=== PATIENT | male | born 1975 | race Caucasian/White ===

== ENCOUNTER → 2017-02-10 | Outpatient (REF) ==
--- NOTE | 2017-02-10 15:42 | REP ---
Cervical spine series: Limited study three views. History: Degenerative disc disease. No comparison views. Findings: Lateral view shows degenerative disc spurring and slight narrowing at the C4-5, C5-6 and C6-7. Alignment is normal. Vertebral body heights are preserved. Open-mouth odontoid view is unremarkable. AP radiograph shows minimal facet hypertrophy in the mid cervical spine bilaterally. Impression: Mild degenerative spondylosis changes. Signed by Darius Lizarraga MD 02/10/2017 05:01 P
--- NOTE | 2017-02-11 08:39 | REP ---
Lumbar spine series: Three views. History: Degenerative disc disease. Findings: Lumbar vertebral body heights are preserved. There is degenerative disc narrowing at L4-5, L5-S1, and to a lesser extent L3-4. Discogenic spurring is seen at these levels as well as at L1-2 and L2-3. Pedicles and posterior elements are intact. There is no evidence of spondylolysis or spondylolisthesis. Sacrum and SI joints are unremarkable. Psoas margins are intact. Visualized bowel gas pattern is normal. Impression: Degenerative disc disease mild and diffuse. This is most pronounced at L4-5 and L5-S1. Signed by Darius Lizarraga MD 02/11/2017 11:57 A
== END ==
LOC: M SMT 11:44
PROVIDERS: ATTEND Internal Medicine
DX: M51.36 Other intervertebral disc degeneration, lumbar region (principal); M54.2 Cervicalgia

== ENCOUNTER → 2018-02-14 | Outpatient (CLI) | payer OTHER ==
[2018-02-14 09:59] LABS: ALBUMIN 4.2 GM/DL (3.2-5.2); ALBUMIN/GLOBULIN RATIO 1.35 (1.00-1.93); ALKALINE PHOSPHATASE 84 U/L (45-117); ALT/SGPT 73 U/L (12-78); AST/SGOT 33 U/L (7-37); BILIRUBIN,DIRECT 0.2 MG/DL (0.0-0.2); BILIRUBIN,TOTAL 1.3 MG/DL (0.2-1.0); FERRITIN 78 NG/ML (26-388); IRON (FE) 79 UG/DL (65-175); PERCENT SATURATION 21.1 % (19.7-50.0); TOTAL IRON BINDING CAPACITY 375 UG/DL (250-450); TOTAL PROTEIN 7.3 GM/DL (6.4-8.2)
[2018-02-14 10:30] LABS: HEPATITIS B SURFACE ANTIBODY NEGATIVE (POSITIVE)
[2018-02-14 10:43] LABS: HEPATITIS B SURFACE ANTIGEN NEGATIVE (NEGATIVE)
[2018-02-14 11:09] LABS: HEPATITIS C VIRUS ABY INDEX < 0.0 INDEX (<0.8)
[2018-02-14 11:12] LABS: HEPATITIS A ANTIBODY IGM NEGATIVE (NEGATIVE)
[2018-02-17 08:39] LABS: ALPHA 2-MACROGLOBULINS,QN 117 mg/dL (110-276); ALT (SGPT) P5P 68 IU/L (0-55); ANTI-MITOCHONDRIAL ANTIBODY 13.1 Units (0.0-20.0); ANTINUCLEAR ANTIBODIES DIRECT Negative (Negative); APOLIPOPROTEIN A-1 141 mg/dL (101-178); AST (SGOT) P5P 39 IU/L (0-40); BILIRUBIN, TOTAL 1.2 mg/dL (0.0-1.2); CERULOPLASMIN 18.2 mg/dL (16.0-31.0); CHOLESTEROL TOTAL 245 mg/dL (100-199); FIBROSIS SCORE 0.36 (0.00-0.21); FIBROSIS STAGE F1-F2 (.); GGT 29 IU/L (0-65); GLUCOSE, SERUM 91 mg/dL (65-99); HAPTOGLOBIN 15 mg/dL (34-200); HEIGHT 72 in (.); HEPATITIS A IgG TOTAL Positive (Negative); IGASUB3 50.1 mg/dL (13.4-97.9); IgA SERUM (part of Subclasses) 261 mg/dL (90-386); LIVER-KIDNEY MICROSOMAL ABY 1.2 Units (0.0-20.0); NASH SCORE 0.75 (0.25); STEATOSIS SCORE 0.77 (0.00-0.30); TISSUE TRANSGLUTAMINASE IgA <2 U/mL (0-3); TRIGLYCERIDES 865 mg/dL (0-149); WEIGHT 245 LBS (.)
[2018-02-17 08:39] LABS: ANTI-SMOOTH MUSCLE ANTIBODY 11 Units (0-19)
== END ==
LOC: M RAD 08:16
DX: R94.5 Abnormal results of liver function studies (principal)
CPT/HCPCS: 76705

== ENCOUNTER 2018-04-01 10:31 | Day surgery (SDC) | payer OTHER ==
[2018-04-01] MEDS: NS 1,000 ML IV (12:42)
[2018-04-01] MEDS ORDERED: fentaNYL 100 MCG/2 ML INJECTION (J3010) As Ordered (12:52)
[2018-04-01] MEDS ORDERED: PROPOFOL 200 MG/20 ML VIAL As Ordered ×2 (13:34→13:41)
[2018-04-01] MEDS ORDERED: LIDOCAINE 2% INJ 100 MG/5 ML SDV (FOR ANES.) As Ordered (13:34)
== END 2018-04-01 14:13 | disposition home or self-care (01) ==
LOC: M OPP 10:31
DX: K29.70 Gastritis, unspecified, without bleeding (principal); K21.0 Gastro-esophageal reflux disease with esophagitis; I10 Essential (primary) hypertension; R01.1 Cardiac murmur, unspecified; F33.9 Major depressive disorder, recurrent, unspecified; F41.9 Anxiety disorder, unspecified; R12 Heartburn; Z87.820 Personal history of traumatic brain injury; Z90.49 Acquired absence of other specified parts of digestive tract; F17.220 Nicotine dependence, chewing tobacco, uncomplicated; Z79.899 Other long term (current) drug therapy
CPT/HCPCS: 43239

== ENCOUNTER 2019-10-10 10:47 | Emergency (ER) | payer OTHER ==
[~2019-10-10] VITALS: Ht 182.9 cm; Wt 109.3 kg
[~2019-10-10 10:47] MED LIST: BACL10TA2 PO; BISO10TA4 PO; D 1010004 PO; DULO1CAP4 PO; HYDR25TAB PO; LISI40TA PO; OMEP40CA97 PO
[2019-10-10] MEDS ORDERED: SERT-138 (10:56)
[2019-10-10] MEDS ORDERED: PANT40TA3 (10:56)
[2019-10-10] MEDS ORDERED: AMLO2.5T3 (10:56)
[2019-10-10] MEDS ORDERED: BOOSTRIX/ADACEL VACCINE (DIPHTH/PERTUSS/ACELL/TETANUS) 0.5ML SYR IM ONE (11:30)
--- NOTE | 2019-10-10 12:28 | REP ---
CT BRAIN AND CT MAXILLOFACIAL BONE: 10/10/2019 INDICATION: Head/face trauma. TECHNIQUE: Axial images of the brain and facial bones were obtained with coronal reconstruction provided. COMPARISON: None. FINDINGS: CT BRAIN: There is no acute intracranial hemorrhage, acute cortical infarction, mass effect, hydrocephalus or acute calvarial fracture. CT FASCIAL BONES: There is no acute fracture, subluxation or dislocation. Mild periosteal mucosal thickening is noted within the left maxillary sinus. The ocular and intraorbital anatomy appears normal. IMPRESSION: No acute intracranial process. No acute facial bone fracture. MTDD
--- NOTE | 2019-10-10 12:34 | REP ---
CT CERVICAL SPINE: 10/10/2019 INDICATION: Cervical spine trauma. TECHNIQUE: Axial CT images of the cervical spine were obtained with sagittal and coronal reconstructions provided. COMPARISON: None. FINDINGS: There is straightening of the cervical lordosis. There is no acute fracture, subluxation or dislocation. No hemorrhage or additional acute posttraumatic findings are detected within the spinal canal. Quantum mottle artifact renders evaluation of the lower cervical spine somewhat suboptimal. Multi-level degenerative sequelae are present predominantly involving anterior spurring from C4 through C7. IMPRESSION: No acute posttraumatic osseous injury of the cervical spine. MTDD
[2019-10-10 13:48] VITALS: BP 116/61
--- NOTE | 2019-10-10 15:44 | REP ---
RIGHT WRIST, FOUR VIEWS: There is no evidence of an acute fracture, dislocation or intrinsic bone disease. A small round calcific density along the ulnar styloid process may represent old avulsion fracture. IMPRESSION: No fracture or dislocation. Electronically Signed by Yaron Marti MD 10/12/2019 12:46 A
--- NOTE | 2019-10-10 15:46 | REP ---
LUMBOSACRAL SPINE SERIES: Five views of the lumbosacral spine performed. There is no compression fracture. There is normal lumbar lordosis. There is mild spurring diffusely. There is mild disc space narrowing at L4-5 and moderate narrowing and subchondral sclerosis at L5-S1. There may be spondylolysis at L5 on the left. Otherwise, posterior elements appear intact. IMPRESSION: Degenerative changes. No compression fracture. Possible pars defect of L5 on the left. Electronically Signed by Yaron Marti MD 10/12/2019 12:48 A
== END 2019-10-10 14:30 | disposition home or self-care (01) ==
LOC: M ED 10:47
DX: S39.012A Strain of muscle, fascia and tendon of lower back, initial encounter (principal); S63.501A Unspecified sprain of right wrist, initial encounter; S00.81XA Abrasion of other part of head, initial encounter; S60.811A Abrasion of right wrist, initial encounter; Y04.8XXA Assault by other bodily force, initial encounter; Y92.89 Other specified places as the place of occurrence of the external cause; I10 Essential (primary) hypertension; F33.9 Major depressive disorder, recurrent, unspecified; F41.9 Anxiety disorder, unspecified; K21.9 Gastro-esophageal reflux disease without esophagitis; Z79.899 Other long term (current) drug therapy

== ENCOUNTER → 2020-08-22 | Outpatient (CLI) | payer OTHER ==
[~2020-08-22] MED LIST changes: +AMLO2.5T3; +HYDR-3490 PO; -HYDR25TAB PO; -LISI40TA PO; +LISI40TA4 PO; +PANT40TA29; +SERT-138
--- NOTE | 2020-08-22 16:47 | REP ---
INDICATION: LUMBAR RADICULOPATHY. COMPARISON: None. TECHNIQUE: Sagittal T1, T2, STIR, axial T1 and T2 MR images of the lumbar spine are obtained. FINDINGS: There is fqcp-uq-htoyqflf multilevel degenerative disc disease with loss of disc height and disc desiccation seen diffusely throughout the lumbar spine, but more notable at the L4-5 and L5-S1 levels. Vertebral heights are overall preserved. No malalignments. On the sagittal T2 weighted images, no limiting canal stenosis. On the review of axial images, At L1-2 no significant canal or foraminal narrowing. At L2-3 diffuse disc bulge with qbcg-tr-oijzmlpy canal narrowing and qxnl-vr-ljdaafeb bilateral foraminal narrowing noted. At L3-4 diffuse disc bulge with mild canal narrowing and mild bilateral foraminal narrowing. At L4-5 diffuse disc bulge and broad-based central disc protrusion with ovft-vv-mdjabfxf canal narrowing, bilateral lateral recess narrowing, and ygostuld-ob-pzzmaw left and moderate right foraminal narrowing. At L5-S1 loss of disc height with kjkggtrs-fq-eijtmw bilateral foraminal narrowing and mild canal stenosis. IMPRESSION: 1. Lqqk-ou-tfgowkzy multilevel degenerative disc disease more progressed at the L4-5 and L5-S1 levels. 2. At L4-5 diffuse disc bulge and broad-based central disc protrusion with ajfj-vu-flrxlmgh canal narrowing, bilateral lateral recess narrowing, and kwnmqtnq-qb-vnbjjo left and moderate right foraminal narrowing. 3. At L5-S1 loss of disc height with curfmrpb-lx-qycqeu bilateral foraminal narrowing and mild canal stenosis. <Electronically signed by Maxwell Ochoa > 08/22/20 [id number]
== END ==
LOC: M PLARAD 13:41
PROVIDERS: ATTEND Nurse Practitioner Family
DX: M54.16 Radiculopathy, lumbar region (principal)

== ENCOUNTER → 2020-12-05 | Outpatient (REF) ==
[~2020-12-05] MED LIST changes: +OMEP40CA4 PO; -OMEP40CA97 PO
--- NOTE | 2020-12-05 14:44 | REP ---
INDICATION: HIP PAIN. COMPARISON: None. TECHNIQUE: AP view of the pelvis and AP and frog-leg lateral views of both hips were obtained. FINDINGS: Views of the left hip demonstrate no evidence of hip arthropathy, hip dislocation or subluxation. There are no acute fractures of the proximal femur. There is a small ossific fragment just superior to the hip joint, consistent with an old avulsion of the anterior inferior iliac spine (AIIS). Views of the right hip demonstrate no evidence of hip arthropathy, hip dislocation or subluxation. There are no acute fractures of the proximal femur. There is a small ossific fragment just superior to the hip joint, consistent with an old avulsion fracture of the anterior inferior iliac spine (AIIS). The bony pelvis is unremarkable. The soft tissues are unremarkable. IMPRESSION: 1. Normal bilateral hips. 2. Evidence of remote injury to the proximal attachment of the rectus femoris muscles, bilaterally. <Electronically signed by Salvador Hutchinson > 12/05/20 [id number]
== END ==
LOC: M PLAIMG 12:07
PROVIDERS: ATTEND Internal Medicine
DX: M25.559 Pain in unspecified hip (principal)

== ENCOUNTER → 2021-08-06 | Outpatient (CLI) | payer OTHER ==
[~2021-08-06] MED LIST changes: +ALLO100T PO; +BISO10TA14 PO; -BISO10TA4 PO; +BISO1TAB19 PO; +HYDR12.55 PO; +MELO15TA28 PO; +NEUR100C PO; +ROSU20TA5 PO; +ZOLO100T PO
== END ==
LOC: M LABSMTC 11:56
PROVIDERS: ATTEND Anesthesiology
DX: Z01.812 Encounter for preprocedural laboratory examination (principal); Z11.52 Encounter for screening for COVID-19

== ENCOUNTER 2021-08-11 13:17 | Day surgery (SDC) | payer OTHER ==
[~2021-08-11] VITALS: Ht 182.9 cm; Wt 113.3 kg
[~2021-08-11 13:17] MED LIST changes: +NS 1,000 ML IV ONE
[2021-08-11] MEDS ORDERED: fentaNYL 100 MCG/2 ML INJECTION As Ordered ONE (14:48)
[2021-08-11] MEDS ORDERED: propofoL 200 MG/20 ML VIAL As Ordered ONE (15:03)
[2021-08-11 15:20] VITALS: BP 132/68
== END 2021-08-11 15:28 | disposition home or self-care (01) ==
LOC: M OPP 13:17
PROVIDERS: ATTEND Internal Medicine Gastroenterology
DX: K29.70 Gastritis, unspecified, without bleeding (principal); K21.00 Gastro-esophageal reflux disease with esophagitis, without bleeding; R12 Heartburn; K74.60 Unspecified cirrhosis of liver; N18.30 Chronic kidney disease, stage 3 unspecified; G47.30 Sleep apnea, unspecified; Z79.899 Other long term (current) drug therapy
CPT/HCPCS: 43239; 88305; J3010

== ENCOUNTER → 2022-09-09 | Outpatient (CLI) | payer OTHER ==
[~2022-09-09] MED LIST changes: -NS 1,000 ML IV ONE
== END ==
LOC: M RAD 06:25
PROVIDERS: ATTEND Nurse Practitioner Family
DX: M46.1 Sacroiliitis, not elsewhere classified (principal); M51.36 Other intervertebral disc degeneration, lumbar region; M16.0 Bilateral primary osteoarthritis of hip

== ENCOUNTER 2023-10-30 20:20 | Inpatient (IN) | payer OTHER ==
[~2023-10-30] VITALS: Ht 180.3 cm; Wt 98.6 kg
[~2023-10-30 20:20] MED LIST changes: -PANT40TA29; +PANT40TA29 PO; -ROSU20TA5 PO; +ROSU20TA61 PO
[2023-10-30 20:50] LABS: BASO # 0.1 10^3/uL (0.0-0.2); BASO % 0.4 % (0.0-1.0); EOS # 0.2 10^3/uL (0.0-0.5); HEMOGLOBIN 17.6 g/dl (13.5-17.5); LYMPH # 2.7 10^3/uL (1.5-5.0); LYMPH % 18.9 % (24.0-44.0); MEAN CORPUSCULAR HGB CONC 35.9 g/dl (32.0-36.5); MEAN CORPUSCULAR VOLUME 83.5 fl (80.0-96.0); MONO # 1.2 10^3/uL (0.0-0.8); MONO % 8.4 % (2.0-8.0); NEUTROPHILS # 10.1 10^3/uL (1.5-8.5); NEUTROPHILS % 70.6 % (36.0-66.0); PLATELET COUNT, AUTOMATED 161 10^3/uL (150-450); RED BLOOD COUNT 5.87 10^6/uL (4.30-6.10); WHITE BLOOD COUNT 14.3 10^3/uL (4.0-10.0)
[2023-10-30 21:13] LABS: CK-MB VALUE MASS 2.3 NG/ML (<3.6)
[2023-10-30 21:15] LABS: BLOOD UREA NITROGEN 26 MG/DL (9-23); CALCIUM LEVEL 9.7 MG/DL (8.5-10.1); CARBON DIOXIDE LEVEL 23 MMOL/L (20-31); CHLORIDE LEVEL 107 MMOL/L (98-107); CREATININE FOR GFR 1.35 MG/DL (0.70-1.30); GLOMERULAR FILTRATION RATE > 60.0 (>60); GLUCOSE, FASTING 105 MG/DL (60-100); POTASSIUM SERUM 3.5 MMOL/L (3.5-5.1); SODIUM LEVEL 142 MMOL/L (136-145)
[2023-10-30 21:17] LABS: CPK CREATINE PHOSPHOKINASE 113 U/L (46-171); MB/CK RELATIVE INDEX 2.03 (< OR =4)
[2023-10-30] MEDS: PANTOPRAZOLE 40MG VIAL IV ONE (21:17)
[2023-10-30] MEDS: NS 500 ML IV ONE ×2 (21:17→23:12)
[2023-10-30 21:41] LABS: D-DIMER QUANT 0.46 ug/mL (<0.5); INR 1.06; PROTHROMBIN TIME 13.4 SECONDS (12.5-14.5)
[2023-10-30] MEDS: ASPIRIN 81MG CHEW TABLET PO ONE (21:43)
[2023-10-30] MEDS: MAALOX 30 ML SUSP *UDC PO ONE (21:43)
[2023-10-30] MEDS: POTASSIUM CHLORIDE 10MEQ SR TABLET PO ONE (21:44)
[2023-10-30] MEDS: CLOPIDOGREL 300 MG TAB (PLAVIX) PO STA (21:44)
[2023-10-30] MEDS: NITROGLYCERIN 0.4MG SUBL TABLET SL PRN (21:46)
[2023-10-30 21:47] LABS: ALBUMIN 4.4 G/DL (3.2-5.2); ALKALINE PHOSPHATASE 100 U/L (46-116); ALT/SGPT 22 U/L (7.0-40); AST/SGOT 23 U/L (<34); BILIRUBIN,DIRECT 0.8 MG/DL (<0.4); BILIRUBIN,TOTAL 3.7 MG/DL (0.3-1.2); TOTAL PROTEIN 7.1 G/DL (5.7-8.2)
[2023-10-30] MEDS ORDERED: ISOVUE-370 76% 100ML VIAL As Ordered ONE (22:06)
[2023-10-30 22:20] LABS: CK-MB VALUE MASS 2.5 NG/ML (<3.6)
[2023-10-30 22:35] LABS: MB/CK RELATIVE INDEX 2.45 (< OR =4)
[2023-10-30] MEDS: ONDANSETRON 4MG 2ML VIAL IV ONE (23:16)
[2023-10-31] VITALS (8 sets, daily range): BP systolic 134–190; BP diastolic 86–120; TEMP 97–98.5; O2SAT 95–98
[2023-10-31] MEDS: NITROGLYCERIN 2% OINT 1 GM *U/D* PKT TOP ONE ×2 (00:21→00:49)
[2023-10-31] MEDS ORDERED: TAMS1CAP17 PO (01:18)
[2023-10-31] MEDS ORDERED: BISO5TAB14 PO (01:18)
[2023-10-31] MEDS ORDERED: SYMB16INH INH (01:19)
[2023-10-31] MEDS ORDERED: HOME MED LIST COMPLETE! XX SCH (01:20)
[2023-10-31] MEDS: hydrALAZINE 20MG/ML 1ML VIAL IV ONE (01:23)
[2023-10-31] MEDS ORDERED: ACETAMINOPHEN TAB 650MG DOSE (2X325MG) PO PRN (01:55)
[2023-10-31] MEDS ORDERED: NS 1,000 ML IV SCH (01:55)
[2023-10-31] MEDS ORDERED: HEPARIN SOD (PORCINE) 5000UNITS/ML 1ML VIAL/SYRINGE SQ SCH (02:35)
[2023-10-31] MEDS: LABETALOL 100MG/20ML VIAL IV ONE (03:31)
[2023-10-31] MEDS: NS 1,000 ML IV SCH (04:43)
[2023-10-31] MEDS: hydrALAZINE 20MG/ML 1ML VIAL IV PRN (04:43)
[2023-10-31] MEDS: LABETALOL 100MG/20ML VIAL IV STA (05:54)
[2023-10-31] MEDS: SYMBICORT 160/4.5MCG INHALER 6GM INH SCH (07:26)
[2023-10-31 07:55] LABS: BILIRUBIN,DIRECT 0.4 MG/DL (<0.4); BILIRUBIN,TOTAL 4.5 MG/DL (0.3-1.2); TOTAL PROTEIN 6.1 G/DL (5.7-8.2)
[2023-10-31] MEDS: TAMSULOSIN 0.4 MG CAP PO SCH (08:26)
[2023-10-31] MEDS: allopurinoL 100 MG TAB PO SCH (08:26)
[2023-10-31] MEDS: PANTOPRAZOLE 40MG TAB (PROTONIX) PO SCH (08:27)
[2023-10-31] MEDS: bisoproloL fumarate 5 MG TAB PO SCH (08:27)
[2023-10-31] MEDS: ENOXAPARIN 40MG/0.4ML SYRINGE (J1650 PER 10MG) SC SCH (08:28)
[2023-10-31] MEDS: SERTRALINE 100 MG TAB PO SCH (08:29)
[2023-10-31] MEDS: DOCUSATE SODIUM 100MG CAPSULE PO SCH (08:29)
[2023-10-31] MEDS ORDERED: PANTOPRAZOLE 40MG VIAL IV SCH (09:00)
[2023-10-31] MEDS: amLODIPine 5 MG TAB PO SCH (09:50)
[2023-10-31 10:10] LABS: ALBUMIN 4.3 G/DL (3.2-5.2); ALKALINE PHOSPHATASE 88 U/L (46-116); ALT/SGPT 20 U/L (7.0-40); AST/SGOT 29 U/L (<34); BILIRUBIN,TOTAL 4.9 MG/DL (0.3-1.2); BLOOD UREA NITROGEN 19 MG/DL (9-23); CALCIUM LEVEL 9.2 MG/DL (8.5-10.1); CARBON DIOXIDE LEVEL 26 MMOL/L (20-31); CHLORIDE LEVEL 108 MMOL/L (98-107); GLOMERULAR FILTRATION RATE > 60.0 (>60); GLUCOSE, FASTING 101 MG/DL (60-100); POTASSIUM SERUM 3.5 MMOL/L (3.5-5.1); SODIUM LEVEL 142 MMOL/L (136-145); TOTAL PROTEIN 6.6 G/DL (5.7-8.2)
[2023-10-31 17:56] LABS: LDH LACTATE DEHYDROGENASE 382 U/L (120-246)
[2023-10-31] MEDS: ROSUVASTATIN 10 MG TAB (CRESTOR) PO SCH (20:20)
[2023-11-01 03:41] VITALS: BP 132/89; TEMP 97.6; O2SAT 98
[2023-11-01 06:28] LABS: HEMATOCRIT 42.6 % (42.0-52.0); HEMOGLOBIN 14.7 g/dl (13.5-17.5); MEAN CORPUSCULAR HEMOGLOBIN 30.2 pg (27.0-33.0); MEAN CORPUSCULAR HGB CONC 34.5 g/dl (32.0-36.5); MEAN CORPUSCULAR VOLUME 87.5 fl (80.0-96.0); RED BLOOD COUNT 4.87 10^6/uL (4.30-6.10); WHITE BLOOD COUNT 7.9 10^3/uL (4.0-10.0)
[2023-11-01 06:47] LABS: ALBUMIN 3.5 G/DL (3.2-5.2); ALKALINE PHOSPHATASE 71 U/L (46-116); ALT/SGPT 19 U/L (7.0-40); AST/SGOT 19 U/L (<34); BILIRUBIN,TOTAL 3.2 MG/DL (0.3-1.2); BLOOD UREA NITROGEN 15 MG/DL (9-23); CALCIUM LEVEL 8.4 MG/DL (8.5-10.1); CARBON DIOXIDE LEVEL 30 MMOL/L (20-31); CHLORIDE LEVEL 109 MMOL/L (98-107); CREATININE FOR GFR 1.28 MG/DL (0.70-1.30); GLOMERULAR FILTRATION RATE > 60.0 (>60); GLUCOSE, FASTING 98 MG/DL (60-100); POTASSIUM SERUM 3.7 MMOL/L (3.5-5.1); SODIUM LEVEL 143 MMOL/L (136-145); TOTAL PROTEIN 5.6 G/DL (5.7-8.2)
[2023-11-01 07:07] LABS: PLATELET COUNT, AUTOMATED 96 10^3/uL (150-450)
[2023-11-01 07:23] VITALS: BP 135/94; TEMP 97.3; O2SAT 98
[2023-11-01 12:00] VITALS: BP 142/94; TEMP 97.6; O2SAT 96
[2023-11-01 12:58] LABS: MB/CK RELATIVE INDEX 1.65 (< OR =4)
[2023-11-01 15:41] VITALS: BP 138/82; TEMP 98.5; O2SAT 97
[2023-11-01 21:09] VITALS: BP 138/91; TEMP 97.7; O2SAT 97
[2023-11-01 23:51] VITALS: BP 170/100; TEMP 97; O2SAT 96
[2023-11-02] VITALS (7 sets, daily range): BP systolic 132–182; BP diastolic 75–102; TEMP 97.9–98; O2SAT 95–98
[2023-11-02 06:46] LABS: CPK CREATINE PHOSPHOKINASE 107 U/L (46-171)
[2023-11-02] MEDS: FOLIC ACID 1MG TAB PO SCH (07:48)
[2023-11-02 09:45] LABS: BASO # 0.1 10^3/uL (0.0-0.2); BASO % 0.7 % (0.0-1.0); EOS # 0.3 10^3/uL (0.0-0.5); EOS % 3.7 % (0.0-3.0); HEMATOCRIT 46.7 % (42.0-52.0); LYMPH % 21.5 % (24.0-44.0); MEAN CORPUSCULAR HEMOGLOBIN 29.7 pg (27.0-33.0); MEAN CORPUSCULAR HGB CONC 34.3 g/dl (32.0-36.5); MEAN CORPUSCULAR VOLUME 86.6 fl (80.0-96.0); MONO # 0.6 10^3/uL (0.0-0.8); MONO % 6.3 % (2.0-8.0); NEUTROPHILS # 6.1 10^3/uL (1.5-8.5); NEUTROPHILS % 66.9 % (36.0-66.0); PLATELET COUNT, AUTOMATED 111 10^3/uL (150-450); RED BLOOD COUNT 5.39 10^6/uL (4.30-6.10); WHITE BLOOD COUNT 9.2 10^3/uL (4.0-10.0)
[2023-11-02 09:53] LABS: ALBUMIN 3.9 G/DL (3.2-5.2); ALKALINE PHOSPHATASE 89 U/L (46-116); ALT/SGPT 23 U/L (7.0-40); AST/SGOT 20 U/L (<34); BILIRUBIN,TOTAL 2.5 MG/DL (0.3-1.2); BLOOD UREA NITROGEN 13 MG/DL (9-23); CALCIUM LEVEL 9.4 MG/DL (8.5-10.1); CARBON DIOXIDE LEVEL 28 MMOL/L (20-31); CHLORIDE LEVEL 110 MMOL/L (98-107); CREATININE FOR GFR 1.16 MG/DL (0.70-1.30); GLOMERULAR FILTRATION RATE > 60.0 (>60); GLUCOSE, FASTING 99 MG/DL (60-100); SODIUM LEVEL 145 MMOL/L (136-145); TOTAL PROTEIN 6.3 G/DL (5.7-8.2)
[2023-11-02] MEDS: bisoproloL fumarate 5 MG TAB PO ONE (10:52)
[2023-11-02] MEDS ORDERED: BISO10TA14 PO (17:19)
[2023-11-02] MEDS ORDERED: PANT40TA29 PO (17:19)
[2023-11-02] MEDS ORDERED: FOLI1TAB11 PO (17:19)
[2023-11-02] MEDS ORDERED: CARA1TAB6 PO (17:19)
[2023-11-02] MEDS ORDERED: AMLO1TAB24 PO (17:19)
[2023-11-03] MEDS ORDERED: bisoproloL fumarate 10 MG TAB PO SCH (09:00)
== END 2023-11-02 18:00 | DRG 205 ==
LOC: M ED 20:20 → M ED INP 10-31 01:53 → M PCU 10-31 04:35
PROVIDERS: ADMIT Preventive Medicine Undersea and Hyperbaric Medicine; ATTEND Internal Medicine
PROC: B246ZZZ Ultrasonography of Right and Left Heart (ICD-10-PCS; principal; 2023-10-31)
DX: I42.1 Obstructive hypertrophic cardiomyopathy (principal); N17.9 Acute kidney failure, unspecified; D69.6 Thrombocytopenia, unspecified; K75.81 Nonalcoholic steatohepatitis (NASH); K74.00 Hepatic fibrosis, unspecified; I10 Essential (primary) hypertension; I25.10 Atherosclerotic heart disease of native coronary artery without angina pectoris; G47.30 Sleep apnea, unspecified; M10.9 Gout, unspecified; I16.0 Hypertensive urgency; N40.0 Benign prostatic hyperplasia without lower urinary tract symptoms; E80.6 Other disorders of bilirubin metabolism; R11.2 Nausea with vomiting, unspecified; I25.2 Old myocardial infarction; K21.00 Gastro-esophageal reflux disease with esophagitis, without bleeding; R07.2 Precordial pain; Z79.899 Other long term (current) drug therapy; Z96.651 Presence of right artificial knee joint